=== PATIENT | male | born 1950 | race Caucasian/White ===

== ENCOUNTER → 2017-02-03 | Outpatient (CLI) | payer MEDICAID, OTHER ==
--- NOTE | 2017-02-03 10:37 | ECHOF ---
Referral Reason:R06.01 MEASUREMENTS -------- HEIGHT: 180.3 cm WEIGHT: 93.0 kg BP: RVIDd: 0.1 cm (< 3.3) IVSd: 0.9 cm (0.6 - 1.1) LVIDd: 4.5 cm (3.9 - 5.3) LVPWd: 1.1 cm (0.6 - 1.1) IVSs: 1.8 cm LVIDs: 2.7 cm LVPWs: 2.1 cm LA Diam: 1.5 cm (2.7 - 3.8) Ao Diam: 3.6 cm (2.0 - 3.7) AV Cusp: 2.6 cm (1.5 - 2.6) LA Diam: 3.8 cm (2.7 - 3.8) MV EXCURSION: 15.965 mm (> 18.000) MV EF SLOPE: 39 mm/s (70 - 150) EPSS: 0.5 cm MV E Leonidas: 0.66 m/s MV DecT: 110 ms MV A Leonidas: 0.58 m/s MV E/A Ratio: 1.15 RAP: 5.00 mmHg RVSP: 15.39 mmHg FINDINGS -------- Sinus rhythm. This was a technically difficult study with suboptimal apical views. There is mild concentric left ventricular hypertrophy. Overall left ventricular systolic function is normal with, an EF between 55 - 60 %. The aortic valve is trileaflet, and appears structurally normal. No aortic stenosis or regurgitation. The mitral valve leaflets are mildly thickened. Mild mitral annular calcification present. Mild mitral regurgitation is present. Mild tricuspid regurgitation present. The right ventricular systolic pressure, as measured by Doppler, is 15.39mmHg. Pulmonic valve appears structurally normal. The aortic root size is normal. Echo free space may represent effusion or a pericardial fat pad. CONCLUSIONS -------- 1. Sinus rhythm. 2. The right ventricular systolic pressure, as measured by Doppler, is 15.39mmHg. 3. Pulmonic valve appears structurally normal. 4. The aortic root size is normal. 5. Echo free space may represent effusion or a pericardial fat pad. 6. This was a technically difficult study with suboptimal apical views. 7. There is mild concentric left ventricular hypertrophy. 8. Overall left ventricular systolic function is normal with, an EF between 55 - 60 %. 9. The aortic valve is trileaflet, and appears structurally normal. No aortic stenosis or regurgitation. 10. The mitral valve leaflets are mildly thickened. 11. Mild mitral annular calcification present. 12. Mild mitral regurgitation is present. 13. Mild tricuspid regurgitation present. TOWEL SEWER: Sylvie Goodwin RDCS
== END | disposition home or self-care (01) ==
LOC: RADECHMAIN 08:04
PROVIDERS: ATTEND Family Medicine
DX: I34.0 Nonrheumatic mitral (valve) insufficiency (principal); I07.1 Rheumatic tricuspid insufficiency; R06.01 Orthopnea
CPT/HCPCS: 93306

== ENCOUNTER 2017-11-09 09:04 | Observation (INO) | payer MEDICAID, MEDICARE ==
[2017-11-09] MEDS ORDERED: KETOROLAC 30 MG/ML 1 ML VIAL IVP STA (09:31)
[2017-11-09 10:08] LABS: Basophils % (A) 0 %; Eosinophils # (A) 0.1 k/uL (0-0.7); Eosinophils % (A) 1 %; HCT 51.4 % (39.0-53.0); HGB 16.7 gm/dL (13.0-17.5); Lymphocytes # (A) 0.8 k/uL (1.0-4.8); Lymphocytes % (A) 9 %; MCH 30.4 pg (25.0-35.0); MCHC 32.5 g/dL (31.0-37.0); MCV 93.4 fL (80.0-100.0); Mean Platelet Volume 6.9; Monocytes # (A) 0.6 k/uL (0-1.0); Monocytes % (A) 7 %; Neutrophils # (A) 7.5 k/uL (1.3-7.7); Neutrophils % (A) 83 %; Platelet Count 187 k/uL (150-450); RDW 12.1 % (11.5-15.5); WBC 9.1 k/uL (3.8-10.6)
--- NOTE | 2017-11-09 10:16 | XR ---
EXAMINATION TYPE: XR knee complete LT DATE OF EXAM: 11/09/2017 COMPARISON: NONE HISTORY: Pain TECHNIQUE: Four views are submitted. FINDINGS: Hypertrophic changes involving the patellar seen with soft tissue ossification inferior to the patell a. Large suprapatellar bursal fluid collection noted. There is vascular calcifications and narrowing of the joint spaces. No erosive changes. Osseous struc tures are intact. No acute fracture seen. IMPRESSION: 1. No acute fracture or dislocation. There is a large suprapatellar joint effusion evidence of osteo arthritis. Correlate with MRI for internal derangement.
[2017-11-09 10:26] LABS: ALT 35 U/L (21-72); AST 22 U/L (17-59); Albumin 4.1 g/dL (3.5-5.0); Alkaline Phosphatase 109 U/L (38-126); Anion Gap 14 mmol/L; Blood Urea Nitrogen 17 mg/dL (9-20); Calcium 9.6 mg/dL (8.4-10.2); Carbon Dioxide 24 mmol/L (22-30); Chloride 100 mmol/L (98-107); Glucose 106 mg/dL (74-99); Potassium 4.2 mmol/L (3.5-5.1); Sodium 138 mmol/L (137-145); Total Bilirubin 1.3 mg/dL (0.2-1.3); Total Protein 7.1 g/dL (6.3-8.2); Uric Acid 9.6 mg/dL (3.5-8.5)
[2017-11-09 10:56] LABS: C Reactive Protein 80.1 mg/L (<10.0)
--- NOTE | 2017-11-09 11:14 | US ---
EXAMINATION TYPE: US venous doppler duplex LE LT DATE OF EXAM: 11/09/2017 11:01 AM COMPARISON: NONE CLINICAL HISTORY: Pain. SIDE PERFORMED: Left TECHNIQUE: The lower extremity deep venous system is examined utilizing real time linear array sonog carole with graded compression, doppler sonography and color-flow sonography. VESSELS IMAGED: External Iliac Vein (EI) Common Femoral Vein Deep Femoral Vein Greater Saphenous Vein * Femoral Vein Popliteal Vein Small Saphenous Vein * Proximal Calf Veins (* superficial vessels) Complex mass in the popliteal fossa. Measures 6.3 cm. Left Leg: Negative for DVT IMPRESSION: 1. Large complex popliteal fossa mass. Measures 6.3 cm. Correlate with MRI. 2. No diagnostic evidence of DVT.
--- NOTE | 2017-11-09 11:14 | ED ---
Lower Extremity Injury HPI - General Chief Complaint: Extremity Injury, Lower Stated Complaint: LEFT KNEE PAIN Time Seen by Provider: 11/09/17 09:16 Source: patient, RN notes reviewed Mode of arrival: wheelchair Limitations: no limitations - History of Present Illness Initial Comments: This is a 67-year-old male who presents with complaints of left knee pain and swelling. He states that he is in the shower within the last couple days with his left leg pain he felt sharp pain in his knee. He is not recall any other trauma he has pain and swelling to the left knee as well as pain to the left calf going down to his foot with some swelling. He states he does have a history of gout and seems to go to the left knee normally. He denies any overt fevers chills or sweats he does have a prior history of infected joint swelling this occurs. He has had be an IV antibiotics. - Related Data Home Medications Medication Instructions Recorded Confirmed Citalopram Hydrobromide [CeleXA] 20 mg PO DAILY 03/16/15 11/09/17 amLODIPine BESYLATE [Norvasc] 10 mg PO DAILY 03/16/15 11/09/17 Allopurinol [Zyloprim] 300 mg PO DAILY 11/09/17 11/09/17 Fluticasone Nasal [place] [Flonase 1 - 2 spray EA NOSTRIL DAILY PRN 11/09/1711/09 Nasal [place]] Indomethacin [Indocin] 50 mg PO AC-BID 11/09/17 11/09/17 Metoprolol Succinate (ER) [Toprol 25 mg PO DAILY 11/09/17 11/09/17 Xl] Naproxen Sodium [Aleve] 440 mg PO Q8H PRN 11/09/17 11/09/17 Allergies Allergy/AdvReac Type Severity Reaction Status Date / Time No Known Allergies Allergy Verified 11/09/17 09:24 Review of Systems ROS Statement: Those systems with pertinent positive or pertinent negative responses have been documented in the HPI. ROS Other: All systems not noted in ROS Statement are negative. Past Medical History Past Medical History: Hypertension Additional Past Medical History / Comment(s): Hx gout History of Any Multi-Drug Resistant Organisms: None Reported Past Surgical History: No Surgical Hx Reported Additional Past Surgical History / Comment(s): Surgery on right index finger, arthoscopy bilateral ankles, arthoscopy on left knee. Past Anesthesia/Blood Transfusion Reactions: No Reported Reaction Past Psychological History: Anxiety, Depression Smoking Status: Former smoker Past Alcohol Use History: Occasional Past Drug Use History: None Reported, Heroin General Exam - General Exam Comments Initial Comments: This is a well-developed well-nourished awake alert oriented 3 male Limitations: no limitations General appearance: alert, in no apparent distress Head exam: Present: atraumatic, normocephalic, normal inspection Eye exam: Present: normal appearance ENT exam: Present: normal exam, mucous membranes moist Neck exam: Present: normal inspection. Absent: tenderness, meningismus, lymphadenopathy Respiratory exam: Present: normal lung sounds bilaterally. Absent: respiratory distress, wheezes, rales, rhonchi, stridor Cardiovascular Exam: Present: tachycardia GI/Abdominal exam: Present: soft, normal bowel sounds. Absent: distended, tenderness, guarding, rebound, rigid Rectal exam: Present: deferred Extremities exam: Present: tenderness, normal capillary refill, other (The left knee is demonstrating a joint effusion with some tenderness palpation no definite increased local temperature. Mild calf pain and some trace edema to the foot) Back exam: Absent: tenderness Neurological exam: Present: alert, oriented X3, CN II-XII intact Psychiatric exam: Present: normal affect, normal mood Skin exam: Present: warm, dry, intact, normal color. Absent: rash Course Vital Signs 11/09/17 11/09/17 09:08 12:17 Temperature 99.2 F 97.8 F Pulse Rate 110 H 99 Respiratory 18 16 Rate Blood Pressure 176/87 157/85 O2 Sat by Pulse 100 96 Oximetry Medical Decision Making - Medical Decision Making I did discuss [employer] the patient has . Patient will be admitted due to his previous history of infectious joint issues. I did discuss case with Dr. Rose. Patient be admitted with consultation by orthopedics. - Lab Data Result diagrams: 11/09/17 09:51 11/09/17 09:51 Lab Results 11/09/17 11/09/17 Range/Units 09:51 09:51 WBC 9.1 (3.8-10.6) k/uL RBC 5.50 (4.30-5.90) m/uL Hgb 16.7 (13.0-17.5) gm/dL Hct 51.4 (39.0-53.0) % MCV 93.4 (80.0-100.0) fL MCH 30.4 (25.0-35.0) pg MCHC 32.5 (31.0-37.0) g/dL RDW 12.1 (11.5-15.5) % Plt Count 187 (150-450) k/uL Neutrophils % 83 % Lymphocytes % 9 % Monocytes % 7 % Eosinophils % 1 % Basophils % 0 % Neutrophils # 7.5 (1.3-7.7) k/uL Lymphocytes # 0.8 L (1.0-4.8) k/uL Monocytes # 0.6 (0-1.0) k/uL Eosinophils # 0.1 (0-0.7) k/uL Basophils # 0.0 (0-0.2) k/uL Sodium 138 (137-145) mmol/L Potassium 4.2 (3.5-5.1) mmol/L Chloride 100 (98-107) mmol/L Carbon Dioxide 24 (22-30) mmol/L Anion Gap 14 mmol/L BUN 17 (9-20) mg/dL Creatinine 0.90 (0.66-1.25) mg/dL Est GFR (MDRD) Af Amer >60 (>60 ml/min/1.73 sqM) Est GFR (MDRD) Non-Af >60 (>60 ml/min/1.73 sqM) Glucose 106 H (74-99) mg/dL Uric Acid 9.6 H (3.5-8.5) mg/dL Calcium 9.6 (8.4-10.2) mg/dL Total Bilirubin 1.3 (0.2-1.3) mg/dL AST 22 (17-59) U/L ALT 35 (21-72) U/L Alkaline Phosphatase 109 (38-126) U/L C-Reactive Protein 80.1 H (<10.0) mg/L Total Protein 7.1 (6.3-8.2) g/dL Albumin 4.1 (3.5-5.0) g/dL - Radiology Data Radiology results: report reviewed (I did review the imaging and reports x-ray shows evidence of an effusion ultrasound shows evidence of a complex posterior knee mass.), image reviewed Disposition Clinical Impression: Effusion, left knee, Left knee pain, Gout attack, Intractable neuropathic pain of knee Disposition: ADMITTED IP TO THIS [facility] Condition: Stable Referrals: Keanu El DO [Primary Care Provider] - 1-2 days
[2017-11-09] MEDS ORDERED: cefTRIAXone IN SWFI 1,000 MG/10 ML SYRINGE IVP STA (12:27)
[2017-11-09] MEDS ORDERED: NALOXONE 0.4 MG/ML 1 ML VIAL IV PRN (12:31)
[2017-11-09] MEDS: KETOROLAC 30 MG/ML 1 ML VIAL IVP PRN ×2 (12:40→19:33)
[2017-11-09] MEDS: SODIUM CHLORIDE 0.9% 1,000 ML IV SCH (14:23)
--- NOTE | 2017-11-09 16:35 | P.HPIM ---
History of Present Illness H&P Date: 11/09/17 Chief Complaint: Left knee swelling and pain Patient is a 67-year-old male with a known history of hypertension, GERD and gout came to the hospital with complaints of left knee pain and swelling. Patient states that he was going to the shower 2 days ago and suddenly felt a pop in the left knee and since then knee has been swelling and causing more pain. Patient is more like sharp pain. Patient does have history of gout and has been taking allopurinol at home. Patient denied any fever or chills or sweating. Patient says that he does have a history of infected joint swelling previously. No commerce of chest pain or shortness of breath. No nausea vomiting or abdominal pain. WBC 9.1 CRP 80.1 Review of Systems Constitutional: Patient denies any fever or chills . No generalized weakness or weight loss. Abdomen: Patient denied nausea vomiting and diarrhea and abdominal pain. Cardiovascular: Patient denies any chest pain or short of breath no palpitations. Respiratory: patient denied any cough is from production. No shortness of breath Neurologic: Patient denied any numbness or tingling headache. Musculoskeletal: Patient denies any complaints of joint swelling or deformity. Left knee swelling and pain Skin: Negative Psychiatric: Negative Endocrine: No heat or cold intolerance. No recent weight gain. Genitourinary: No dysuria or hematuria. All other 14 point ROS negative except the above Past Medical History Past Medical History: GERD/Reflux, Hypertension Additional Past Medical History / Comment(s): Gout which has been in multiple joints, L knee infections with gout, colon benign polyps. History of Any Multi-Drug Resistant Organisms: None Reported Past Surgical History: No Surgical Hx Reported Additional Past Surgical History / Comment(s): Surgery on right index finger, arthoscopy bilateral ankles, arthoscopy on left knee, L knee surgery for fractured patella and removal of a mass and deposits, colonoscopies/benign polypectomies. Past Anesthesia/Blood Transfusion Reactions: No Reported Reaction Smoking Status: Former smoker - Past Family History Mother Family Medical History: No Reported History Additional Family Medical History / Comment(s): Pt states mother is healthy and 92 yrs old. Father Additional Family Medical History / Comment(s): Father is at 79yrs following a upper respiratory tract infection. Medications and Allergies Home Medications Medication Instructions Recorded Confirmed Type Citalopram Hydrobromide [CeleXA] 20 mg PO DAILY 03/16/15 11/09/17 History amLODIPine BESYLATE [Norvasc] 10 mg PO DAILY 03/16/15 11/09/17 History Allopurinol [Zyloprim] 300 mg PO DAILY 11/09/17 11/09/17 History Fluticasone Nasal [place] [Flonase 1 - 2 spray EA NOSTRIL DAILY PRN 11/09/1711/09 History Nasal [place]] Indomethacin [Indocin] 50 mg PO AC-BID 11/09/17 11/09/17 History Metoprolol Succinate (ER) [Toprol 25 mg PO DAILY 11/09/17 11/09/17 History Xl] Naproxen Sodium [Aleve] 440 mg PO Q8H PRN 11/09/17 11/09/17 History Allergies Allergy/AdvReac Type Severity Reaction Status Date / Time No Known Allergies Allergy Verified 11/09/17 09:24 Physical Exam Vitals: Vital Signs Temp Pulse Resp BP Pulse Ox 11/09/17 12:17 97.8 F 99 16 157/85 96 11/09/17 09:08 99.2 F 110 H 18 176/87 100 Intake and Output 11/08/17 11/09/17 11/09/17 22:59 06:59 14:59 Other: Weight 90.718 kg Patient Weight 11/10/17 06:59 Weight 90.718 kg PHYSICAL EXAMINATION: Patient is lying in the bed comfortably, no acute distress, awake alert and oriented.. HEENT: Normocephalic. Neck is supple. Pupils reactive. Nostrils clear. Oral cavity is moist. Ears reveal no drainage. Neck reveals no JVD, carotid bruits, or thyromegaly. CHEST EXAMINATION: Trachea is central. Symmetrical expansion. Lung nunes clear to auscultation and percussion. CARDIAC: Normal S1, S2 with no gallops. No murmurs ABDOMEN: Soft. Bowel sounds normal. No organomegaly. No abdominal bruits. Extremities: reveal no edema. No clubbing or cyanosis Neurologically awake, alert, oriented x3 with well-coordinated movements. No focal deficits noted Skin: No rash or skin lesions. Psychiatric: Coperative. Nonsuicidal Musculoskeletal: Agent does have left knee swelling and tenderness and warmth. Decreased range of motion. No other joint swelling. Results CBC & Chem 7: 11/09/17 09:51 11/09/17 09:51 Labs: Abnormal Lab Results - Last 24 Hours (Table) 11/09/17 11/09/17 Range/Units 09:51 09:51 Lymphocytes # 0.8 L (1.0-4.8) k/uL Glucose 106 H (74-99) mg/dL Uric Acid 9.6 H (3.5-8.5) mg/dL C-Reactive Protein 80.1 H (<10.0) mg/L Thrombosis Risk Factor Assmnt - DVT/VTE Prophylaxis DVT/VTE Prophylaxis: Pharmacologic Prophylaxis ordered - Choose All That Apply Any of the Below Risk Factors Present?: Yes Each Factor Represents 1 point: Obesity (BMI >25) Other Risk Factors: Yes Each Risk Factor Represents 2 Points: Age 61-74 years Other congenital or acquired thrombophilia - If yes, enter type in comment: No Thrombosis Risk Factor Assessment Total Risk Factor Score: 3 Thrombosis Risk Factor Assessment Level: Moderate Risk Assessment and Plan Assessment: Left knee swelling likely due to acute gouty arthritis. Unlikely septic arthritis History of gout GERD Hypertension Plan: Patient will be continued on pain medications with anti-inflammatory Toradol. Orthopedics has been consulted for left knee aspiration and rule out septic arthritis. Patient was given a dose of antibiotics in the ER. We will hold antibiotics until evaluated by orthopedics. Further recommendations as on the clinical course. Time with Patient: Greater than 30
[2017-11-09] MEDS: HEPARIN SODIUM,PORCINE 5,000 UNIT/ML 1 ML VIAL SQ SCH (17:00)
[2017-11-09] MEDS ORDERED: HYDROmorphone 2 MG/ML 1 ML SYRINGE IVP PRN (17:03)
[2017-11-09] MEDS: HYDROcodone/APAP 5-325MG 1 EACH TAB PO PRN (17:54)
[2017-11-09] MEDS ORDERED: HYDROmorphone 0.5 MG/0.5 ML SYRINGE IVP PRN (22:17)
[2017-11-10] MEDS: HEPARIN SODIUM,PORCINE 5,000 UNIT/ML 1 ML VIAL SQ SCH ×3 (01:21→15:50)
[2017-11-10] MEDS: HYDROcodone/APAP 5-325MG 1 EACH TAB PO PRN ×2 (06:17→19:00)
[2017-11-10] MEDS: KETOROLAC 30 MG/ML 1 ML VIAL IVP PRN (06:57)
[2017-11-10] MEDS: ALLOPURINOL 300 MG TAB PO SCH (09:05)
[2017-11-10] MEDS: amLODIPine 10 MG TAB PO SCH (09:05)
[2017-11-10] MEDS: CITALOPRAM HYDROBROMIDE 20 MG TAB PO SCH (09:05)
[2017-11-10] MEDS: METOPROLOL SUCCINATE (ER) 25 MG TAB.ER.24H PO SCH (09:05)
[2017-11-10] MEDS ORDERED: LIDOCAINE 2%-EPI 1:100,000 20 ML VIAL INTRAARTIC ONE (09:40)
[2017-11-10] MEDS ORDERED: methylPREDNISolone ACETATE 80 MG/ML 1 ML VIAL INTRAARTIC STA (09:44)
[2017-11-10] MEDS ORDERED: LIDOCAINE 2%-EPI 1:200,000 20 ML VIAL INTRAARTIC ONE (10:00)
[2017-11-10] MEDS ORDERED: diphenhydrAMINE 25 MG CAP PO STA (10:57)
[2017-11-10] MEDS: methylPREDNISolone 4 MG TAB TAPER PO SCH (12:36)
[2017-11-10 13:26] LABS: Appearance,BF Cloudy; Color,BF Yellow; Nucleated Cells, Body Fluid 15600 /uL; RBC, Body Fluid 2000 /uL
[2017-11-10 13:28] LABS: Mononuclear WBC,Body Fluid 8 %; Polynuclear WBC,Body Fluid 92 %; Total Cells Counted,Body Fluid 100
[2017-11-10] MEDS: SODIUM CHLORIDE 0.9% 1,000 ML IV SCH (14:58)
[2017-11-10] MEDS: HYDROmorphone 2 MG TAB PO PRN (15:16)
[2017-11-10] MEDS ORDERED: INDOMETHACIN 25 MG CAP PO SCH (16:00)
--- NOTE | 2017-11-10 20:19 | P.CNOR ---
History of Present Illness - [facility] Consult date: 11/10/17 Requesting physician: Trae Haddad Consult reason: joint pain History of present illness: Patient is a pleasant 67-year-old male seen at bedside this morning. Orthopedics was consulted for acute intractable left knee pain. He states yesterday he was bending his knee and felt a pop or snap in the lateral aspect of his knee however he did not have immediate severe pain. Few hours later as knee pain progressed, he had difficulty with range of motion, weightbearing and ambulating. He states he does have a history of gout with previous acute gout attacks. The acute attacks have been at multiple joints. He is currently denying fever or chills. He's had no wounds to the knee or leg. He has no calf pain, numbness, tingling, chest pain or shortness of breath. He has no other complaints. Review of Systems All systems: negative Constitutional: Denies chills, Denies fever Eyes: denies blurred vision, denies pain Ears, nose, mouth and throat: Denies headache, Denies sore throat Cardiovascular: Denies chest pain, Denies shortness of breath Respiratory: Denies cough Gastrointestinal: Denies abdominal pain, Denies diarrhea, Denies nausea, Denies vomiting Musculoskeletal: Denies myalgias Integumentary: Denies pruritus, Denies rash Neurological: Denies numbness, Denies weakness Psychiatric: Denies anxiety, Denies depression Endocrine: Denies fatigue, Denies weight change Past Medical History Past Medical History: GERD/Reflux, Hypertension Additional Past Medical History / Comment(s): Gout which has been in multiple joints, L knee infections with gout, colon benign polyps. History of Any Multi-Drug Resistant Organisms: None Reported Past Surgical History: No Surgical Hx Reported Additional Past Surgical History / Comment(s): Surgery on right index finger, arthoscopy bilateral ankles, arthoscopy on left knee, L knee surgery for fractured patella and removal of a mass and deposits, colonoscopies/benign polypectomies. Past Anesthesia/Blood Transfusion Reactions: No Reported Reaction Smoking Status: Former smoker - Past Family History Mother Family Medical History: No Reported History Additional Family Medical History / Comment(s): Pt states mother is healthy and 92 yrs old. Father Additional Family Medical History / Comment(s): Father is at 79yrs following a upper respiratory tract infection. Medications and Allergies Home Medications Medication Instructions Recorded Confirmed Type Citalopram Hydrobromide [CeleXA] 20 mg PO DAILY 03/16/15 11/09/17 History amLODIPine BESYLATE [Norvasc] 10 mg PO DAILY 03/16/15 11/09/17 History Allopurinol [Zyloprim] 300 mg PO DAILY 11/09/17 11/09/17 History Fluticasone Nasal [place] [Flonase 1 - 2 spray EA NOSTRIL DAILY PRN 11/09/1711/09 History Nasal [place]] Indomethacin [Indocin] 50 mg PO AC-BID 11/09/17 11/09/17 History Metoprolol Succinate (ER) [Toprol 25 mg PO DAILY 11/09/17 11/09/17 History Xl] Naproxen Sodium [Aleve] 440 mg PO Q8H PRN 11/09/17 11/09/17 History Allergies Allergy/AdvReac Type Severity Reaction Status Date / Time No Known Allergies Allergy Verified 11/09/17 09:24 Physical Examination Inspection of the left knee shows no bony deformity. There is no erythema or ecchymoses. There are no wounds. There is a mild to moderate effusion. It is not overly hot to touch. There is a well-healed midline surgical wound from previous patellar repair per patient. He has significant pain with minimal range of motion in flexion and extension. The knee is ligamentously stable. Negative Jermaine's. MCL and LCL are intact. Calf is soft and nontender. 2 plus dorsalis pedis pulse and less than 2 second capillary refill is present. Motor and sensation is grossly intact throughout the left lower extremity. Results x-rays of the left knee show no fractures, lesions or dislocations. There is age-related degenerative changes and osteoarthritis. - Labs Labs: Microbiology - Last 24 Hours (Table) 11/10/17 10:16 Body Fluid Culture - Preliminary Knee - Left 11/09/17 09:51 Blood Culture - Preliminary Blood No Growth after 24 hours H & H 11/09/17 Range/Units 09:51 Hgb 16.7 (13.0-17.5) gm/dL Hct 51.4 (39.0-53.0) % Result Diagrams: 11/09/17 09:51 11/09/17 09:51 - Diagnostic results Knee x-ray: report reviewed, image reviewed Assessment and Plan (1) Gout attack Narrative/Plan: After obtaining informed consent, the superior lateral aspect of the left knee was prepped utilizing sterile technique. 5 cc of 2% lidocaine was injected into intra-articular space. He tolerated well without complication. After which, approximately 50 cc of joint fluid was aspirated which appeared chalky/ straw-colored. There was no significant hematoma or evidence of infection/ purulence. The aspiration was sent for cell count, culture and sensitivity, Gram stain and crystal analysis. Suspect that this is consistent with an acute gout attack. The joint then was injected with 80 mg of Depo-Medrol. He tolerated the overall procedure well without complication. We'll place him on a 6 day course of Medrol Dosepak as well as continue his pain management and supportive measures. We'll monitor him closely and make further recommendations as appropriate. Current Visit: Yes Status: Acute Priority: Medium Code(s): M10.9 - GOUT, UNSPECIFIED SNOMED Code(s): 59273746 Time with Patient: Less than 30
[2017-11-10 23:56] VITALS: RESP 16
[2017-11-11] MEDS: HEPARIN SODIUM,PORCINE 5,000 UNIT/ML 1 ML VIAL SQ SCH ×2 (01:24→08:18)
[2017-11-11] MEDS: HYDROmorphone 2 MG TAB PO PRN (03:48)
[2017-11-11 08:04] VITALS: BP 129/75; PULSE 76; TEMP 98
[2017-11-11] MEDS: METOPROLOL SUCCINATE (ER) 25 MG TAB.ER.24H PO SCH (08:18)
[2017-11-11] MEDS: methylPREDNISolone 4 MG TAB TAPER PO SCH (08:18)
[2017-11-11] MEDS: ALLOPURINOL 300 MG TAB PO SCH (08:18)
[2017-11-11] MEDS: amLODIPine 10 MG TAB PO SCH (08:18)
[2017-11-11] MEDS: CITALOPRAM HYDROBROMIDE 20 MG TAB PO SCH (08:19)
[2017-11-11] MEDS: HYDROcodone/APAP 5-325MG 1 EACH TAB PO PRN (12:02)
--- NOTE | 2017-11-27 22:42 | P.PN ---
Subjective Progress Note Date: 11/10/17 Principal diagnosis: Acute left knee gouty arthritis Patient is a 67-year-old male with a known history of hypertension, GERD and gout came to the hospital with complaints of left knee pain and swelling. Patient states that he was going to the shower 2 days ago and suddenly felt a pop in the left knee and since then knee has been swelling and causing more pain. Patient is more like sharp pain. Patient does have history of gout and has been taking allopurinol at home. Patient denied any fever or chills or sweating. Patient says that he does have a history of infected joint swelling previously. No commerce of chest pain or shortness of breath. No nausea vomiting or abdominal pain. WBC 9.1 CRP 80.1 11/10/2017 Patient's left knee swelling is much improved now. Left knee arthrocentesis was done and fluid analysis is consistent with gouty arthritis. Otherwise no fever no chills. Able to ambulate slowly. Otherwise anticipate discharge in next 24 hours. No fever no chills. No chest pain no shortness of breath. All other review of systems negative except the above Current medications reviewed Objective - Vital Signs Vital signs: Vital Signs Temp 98.1 F 11/10/17 07:39 Pulse 79 11/10/17 12:00 Resp 16 11/10/17 11:52 BP 117/69 11/10/17 12:00 Pulse Ox 95 11/10/17 12:00 Intake & Output 11/09/17 11/10/17 11/10/17 18:59 06:59 18:59 Intake Total 340 476 Balance 340 476 Weight 94.2 kg 94.2 kg Intake: Oral 340 476 Other: Voiding Method Toilet Toilet # Voids 1 3 - Exam PHYSICAL EXAMINATION: Patient is lying in the bed comfortably, no acute distress, awake alert and oriented.. HEENT: Normocephalic. Neck is supple. Pupils reactive. Nostrils clear. Oral cavity is moist. Ears reveal no drainage. Neck reveals no JVD, carotid bruits, or thyromegaly. CHEST EXAMINATION: Trachea is central. Symmetrical expansion. Lung nunes clear to auscultation and percussion. CARDIAC: Normal S1, S2 with no gallops. No murmurs ABDOMEN: Soft. Bowel sounds normal. No organomegaly. No abdominal bruits. Extremities: reveal no edema. No clubbing or cyanosis Neurologically awake, alert, oriented x3 with well-coordinated movements. No focal deficits noted Skin: No rash or skin lesions. Psychiatric: Coperative. Nonsuicidal Musculoskeletal: No joint swelling or deformity. Normal range of motion. - Labs CBC & Chem 7: 11/09/17 09:51 02 09:51 Labs: Microbiology - Last 24 Hours (Table) 11/09/17 09:51 Blood Culture - Preliminary Blood No Growth after 24 hours Assessment and Plan Assessment: Left knee swelling likely due to acute gouty arthritis. Unlikely septic arthritis History of gout GERD Hypertension Plan: Patient will be continued on pain medications with anti-inflammatory Toradol. Changed to indomethacin. Orthopedics has been consulted for left knee aspiration and rule out septic arthritis. Fluid analysis is consistent with gouty arthritis. Patient was given a dose of antibiotics in the ER. Leg swelling is improving. No need for antibiotics.. Further recommendations as on the clinical course.
--- NOTE | 2017-11-27 22:44 | P.DS ---
Providers Date of admission: 11/09/17 12:31 Expected date of discharge: 11/11/17 Attending physician: Gabriela Rose Consults: 11/09/17 12:32 Consult Physician Routine Consulting Provider: Trae Haddad Consult Reason/Comments: Left knee effusion, left popliteal mass, gout him intractable knee pain Do you want consulting provider notified?: Yes Primary care physician: Keanu El Hospital Course: Discharge diagnosis Left knee swelling due to acute gouty arthritis. Unlikely septic arthritis History of gout GERD Hypertension Hospital course Patient is a 67-year-old male with a known history of hypertension, GERD and gout came to the hospital with complaints of left knee pain and swelling. Patient states that he was going to the shower 2 days ago and suddenly felt a pop in the left knee and since then knee has been swelling and causing more pain. Patient is more like sharp pain. Patient does have history of gout and has been taking allopurinol at home. Patient denied any fever or chills or sweating. Patient says that he does have a history of infected joint swelling previously. No commerce of chest pain or shortness of breath. No nausea vomiting or abdominal pain. WBC 9.1 CRP 80.1 11/10/2017 Patient's left knee swelling is much improved now. Left knee arthrocentesis was done and fluid analysis is consistent with gouty arthritis. Otherwise no fever no chills. Able to ambulate slowly. Otherwise anticipate discharge in next 24 hours. Patient was continued on pain medications with anti-inflammatory Toradol. Changed to indomethacin. Orthopedics has been consulted for left knee aspiration and rule out septic arthritis. Fluid analysis is consistent with gouty arthritis. Patient was given a dose of antibiotics in the ER. Leg swelling resolved. No need for antibiotics.. Patient is stable to be discharged home. PHYSICAL EXAMINATION: Patient is lying in the bed comfortably, no acute distress, awake alert and oriented.. HEENT: Normocephalic. Neck is supple. Pupils reactive. Nostrils clear. Oral cavity is moist. Ears reveal no drainage. Neck reveals no JVD, carotid bruits, or thyromegaly. CHEST EXAMINATION: Trachea is central. Symmetrical expansion. Lung nunes clear to auscultation and percussion. CARDIAC: Normal S1, S2 with no gallops. No murmurs ABDOMEN: Soft. Bowel sounds normal. No organomegaly. No abdominal bruits. Extremities: reveal no edema. No clubbing or cyanosis Neurologically awake, alert, oriented x3 with well-coordinated movements. No focal deficits noted Skin: No rash or skin lesions. Psychiatric: Coperative. Nonsuicidal Musculoskeletal: No joint swelling or deformity. Normal range of motion. Patient Condition at Discharge: Stable Plan - Discharge Summary Discharge Rx Participant: No New Discharge Prescriptions: New methylPREDNISolone Dose Pack [Medrol Dose Pack] 4 mg PO DIRECTED #21 package Continue amLODIPine BESYLATE [Norvasc] 10 mg PO DAILY Citalopram Hydrobromide [CeleXA] 20 mg PO DAILY Metoprolol Succinate (ER) [Toprol XL] 25 mg PO DAILY Allopurinol [Zyloprim] 300 mg PO DAILY Naproxen Sodium [Aleve] 440 mg PO Q8H PRN PRN Reason: Pain Indomethacin [Indocin] 50 mg PO AC-BID Fluticasone Nasal Frederick [Flonase Nasal Frederick] 1 - 2 spray EA NOSTRIL DAILY PRN PRN Reason: Allergy Symptoms Discharge Medication List Citalopram Hydrobromide [CeleXA] 20 mg PO DAILY 03/16/15 [History] amLODIPine BESYLATE [Norvasc] 10 mg PO DAILY 03/16/15 [History] Allopurinol [Zyloprim] 300 mg PO DAILY 11/09/17 [History] Fluticasone Nasal Frederick [Flonase Nasal Frederick] 1 - 2 spray EA NOSTRIL DAILY PRN 11/09/17 [History] Indomethacin [Indocin] 50 mg PO AC-BID 11/09/17 [History] Metoprolol Succinate (ER) [Toprol XL] 25 mg PO DAILY 11/09/17 [History] Naproxen Sodium [Aleve] 440 mg PO Q8H PRN 11/09/17 [History] methylPREDNISolone Dose Pack [Medrol Dose Pack] 4 mg PO DIRECTED #21 package 11/11/17 [Rx] Follow up Appointment(s)/Referral(s): Keanu El DO [Primary Care Provider] - 1-2 days Trae Haddad MD [STAFF PHYSICIAN] - As Needed (follow up as needed ) Patient Instructions/Handouts: Gout (GEN) Activity/Diet/Wound Care/Special Instructions: [facility] - [phone] - will deliver to bedside before discharge Discharge Disposition: HOME SELF-CARE
== END 2017-11-11 13:30 | disposition home or self-care (01) ==
LOC: EC 09:04 → 3OBS 12:31
PROVIDERS: ADMIT Hospitalist; ATTEND Hospitalist
DX: M25.462 Effusion, left knee (principal); M25.562 Pain in left knee; M10.9 Gout, unspecified; K21.9 Gastro-esophageal reflux disease without esophagitis; I10 Essential (primary) hypertension; E66.9 Obesity, unspecified; Z68.28 Body mass index [BMI] 28.0-28.9, adult; Z79.899 Other long term (current) drug therapy; Z87.891 Personal history of nicotine dependence; F32.9 Major depressive disorder, single episode, unspecified; Z79.1 Long term (current) use of non-steroidal anti-inflammatories (NSAID)
CPT/HCPCS: 36415; 80053; 84550; 85025; 86140; 87040; 87070; 87205; 89050; 89060; 96372; 96374; 96375; 96376; 99285

== ENCOUNTER → 2017-12-28 | Outpatient (CLI) | payer MEDICARE ==
[2017-12-28 11:44] LABS: INR 1.1 (<1.2); Partial Thromboplastin Time 23.4 sec (22.0-30.0); Prothrombin Time 10.7 sec (9.0-12.0)
[2017-12-28 11:45] LABS: Basophils % (A) 0 %; Eosinophils % (A) 1 %; HCT 47.8 % (39.0-53.0); HGB 16.4 gm/dL (13.0-17.5); Lymphocytes # (A) 1.9 k/uL (1.0-4.8); Lymphocytes % (A) 21 %; MCH 30.1 pg (25.0-35.0); MCHC 34.4 g/dL (31.0-37.0); Mean Platelet Volume 6.6; Monocytes # (A) 0.7 k/uL (0-1.0); Monocytes % (A) 7 %; Neutrophils # (A) 6.4 k/uL (1.3-7.7); Neutrophils % (A) 70 %; Platelet Count 259 k/uL (150-450); RBC 5.45 m/uL (4.30-5.90); RDW 12.4 % (11.5-15.5); WBC 9.1 k/uL (3.8-10.6)
[2017-12-28 11:48] LABS: MCV 87.7 fL (80.0-100.0)
[2017-12-28 11:59] LABS: ALT 41 U/L (21-72); AST 16 U/L (17-59); Albumin 3.8 g/dL (3.5-5.0); Alkaline Phosphatase 81 U/L (38-126); Anion Gap 13 mmol/L; Blood Urea Nitrogen 17 mg/dL (9-20); Calcium 9.4 mg/dL (8.4-10.2); Carbon Dioxide 26 mmol/L (22-30); Chloride 101 mmol/L (98-107); Cholesterol 155 mg/dL (<200); Glucose 81 mg/dL (74-99); HDL Cholesterol 60 mg/dL (40-60); LDL Cholesterol,Calculated 58 mg/dL (0-99); Potassium 3.8 mmol/L (3.5-5.1); Sodium 140 mmol/L (137-145); Total Bilirubin 0.4 mg/dL (0.2-1.3); Total Protein 6.6 g/dL (6.3-8.2); Triglycerides 185 mg/dL (<150)
[2017-12-28 12:28] LABS: PSA Annual Screen 1.93 ng/mL (0.00-4.00)
== END | disposition home or self-care (01) ==
LOC: LABWHC1 10:43
PROVIDERS: ATTEND Physician Assistant Medical
DX: Z01.812 Encounter for preprocedural laboratory examination (principal); I10 Essential (primary) hypertension; M1A.0790 Idiopathic chronic gout, unspecified ankle and foot, without tophus (tophi); M25.562 Pain in left knee; Z13.220 Encounter for screening for lipoid disorders; Z12.5 Encounter for screening for malignant neoplasm of prostate
CPT/HCPCS: 80053; 80061; 84443; 85025; 85610; 85730; 36415; G0103

== ENCOUNTER → 2020-05-30 | Day surgery (SDC) | payer MEDICARE ==
[2020-05-28 13:40] VITALS: BMI 26.4
[~2020-05-30] MED LIST: LACTATED RINGERS 1,000 ML IV SCH; PROPOFOL 10 MG/ML 20 ML VIAL IV ONE
[2020-05-30 09:51] VITALS: TEMP 98
--- NOTE | 2020-05-30 10:51 | P.PCN ---
Date of Procedure: 05/30/20 Procedure(s) Performed: BRIEF HISTORY: Patient is a 69-year-old pleasant right male scheduled for an elective colonoscopy as a part of screening for colorectal neoplasia. PROCEDURE PERFORMED: Colonoscopy. PREOPERATIVE DIAGNOSIS: Screening for colon cancer. IV sedation per Anesthesia. PROCEDURE: After informed consent was obtained, the patient, was brought into the endoscopy unit. IV sedation was administered by Anesthesia under continuous monitoring. Digital rectal examination was normal. Initially the Olympus CF-160 flexible video colonoscope was then inserted in the rectum, gradually advanced into the cecum without any difficulty. Careful examination was performed as the scope was gradually being withdrawn. Ileocecal valve and the appendiceal orifice were visualized and appeared normal. Prep was excellent. Mucosa of the cecum, ascending colon, transverse colon, descending colon, sigmoid colon, and rectum appeared normal. Retroflexion was performed in the rectum and small internal hemorrhoids were seen. The patient tolerated the procedure well. IMPRESSION: Normal-appearing colon from rectum to cecum with no evidence of colorectal neoplasia. Small internal hemorrhoids. RECOMMENDATIONS: Findings of this examination were discussed with the patient as well as his family. He was advised to have a repeat screening colonoscopy in 10 years.
[2020-05-30 11:26] VITALS: BP 163/81; PULSE 78; RESP 16
== END ==
LOC: ORWHC2ENDO 09:04
PROVIDERS: ATTEND Internal Medicine Gastroenterology
DX: Z12.11 Encounter for screening for malignant neoplasm of colon (principal); K64.8 Other hemorrhoids; Z86.010 Personal history of colon polyps; I10 Essential (primary) hypertension; M10.9 Gout, unspecified; K21.9 Gastro-esophageal reflux disease without esophagitis; Z88.4 Allergy status to anesthetic agent; Z79.899 Other long term (current) drug therapy; Z98.890 Other specified postprocedural states
CPT/HCPCS: G0105; J2704; 45378